=== PATIENT | female | born 1985 | race Caucasian/White ===

== ENCOUNTER 2016-09-29 16:21 | Emergency (ER) | payer MEDICAID ==
[2013-08-25 10:09] VITALS: BMI 27.8
[~2016-09-29 16:21] MED LIST: AMBIEN10 MG PO; DIABETA2.5 MG OR; MOTRIN600 MG PO; PERCOCET 5/3251 TA1 PO; PRENATAL COMPLE1 TAB PO
== END 2016-09-29 17:27 | disposition home or self-care (01) ==
LOC: D.ER 16:21
DX: S90.31XA Contusion of right foot, initial encounter (principal); W20.8XXA Other cause of strike by thrown, projected or falling object, initial encounter; Y93.89 Activity, other specified; Y92.019 Unspecified place in single-family (private) house as the place of occurrence of the external cause; B19.20 Unspecified viral hepatitis C without hepatic coma; F17.200 Nicotine dependence, unspecified, uncomplicated

== ENCOUNTER 2016-10-19 07:16 | Emergency (ER) | payer MEDICAID ==
[2013-08-25 10:09] VITALS: BMI 27.8
[2016-10-19 07:52] LABS: BASOPHILS 0.3 % (0.0-2.0); EOSINOPHILS 1.4 % (0-7); HEMATOCRIT 41.3 % (36.0-48.0); HEMOGLOBIN 14.3 g/dL (12-16); IMMATURE GRANULOCYTES 0.2 % (0-5); MCH 34.1 pg (26.0-34.0); MCHC 34.6 g/dL (31.0-37.0); MCV 98.6 fL (80.0-100.0); MEAN PLATELET VOLUME 10.8 fL (7.4-10.4); MONOCYTES 7.9 % (2-11); NEUTROPHILS 69.2 % (40-80); PLATELET COUNT 188 10x3/uL (130-400); RBC 4.19 10x6/uL (4.00-5.40); RDW 12.2 % (11.5-14.5); WBC 6.3 10x3/uL (4.8-10.8)
[2016-10-19 08:39] LABS: ALBUMIN 3.8 g/dL (3.4-5.0); ALKALINE PHOSPHATASE 59 U/L (46-116); ALT (SGPT) 55 U/L (10-68); AMYLASE - SERUM 40 U/L (25-115); BILIRUBIN - TOTAL 0.73 mg/dL (0.2-1.3); CALC OSMOLALITY 278 mosm/kg (275-300); CALCIUM 8.7 mg/dL (8.5-10.1); CARBON DIOXIDE 23.7 mmol/L (21.0-32.0); CHLORIDE - SERUM 107 mmol/L (98-107); CREATININE - SERUM 0.8 mg/dL (0.6-1.3); GLUCOSE 105 mg/dL (74-106); LIPASE 91 U/L (73-393); POTASSIUM - SERUM 3.6 mmol/L (3.5-5.1); PROTEIN - SERUM 7.2 g/dL (6.4-8.2); SODIUM 141 mmol/L (136-145); UREA NITROGEN 8 mg/dL (7-18); eGFR NON AFRICAN AMERICAN 89 mL/min (90-120)
[2016-10-19 08:42] LABS: HCG URINE NEGATIVE (NEGATIVE)
[2016-10-19 09:26] LABS: APPEARANCE SLT CLOUDY (CLEAR); COLOR YELLOW (YELLOW)
[2016-10-19 09:27] LABS: BACTERIA MODERATE /hpf (NONE SEEN); BILIRUBIN NEGATIVE (NEGATIVE); GLUCOSE NEGATIVE (NEGATIVE); KETONE NEGATIVE (NEGATIVE); LEUKOCYTE ESTERASE TRACE (NEGATIVE); MUCUS <1+ /lpf (NONE SEEN); NITRITE NEGATIVE (NEGATIVE); PROTEIN NEGATIVE (NEGATIVE); RED CELLS - URINE NONE SEEN /hpf (0-5); UROBILINOGEN NORMAL (NORMAL); WHITE CELLS - URINE RARE /hpf (0-5)
== END 2016-10-19 10:17 | disposition home or self-care (01) ==
LOC: D.ER 07:16
PROVIDERS: Emergency Medicine
DX: E86.0 Dehydration (principal); B34.9 Viral infection, unspecified; B19.20 Unspecified viral hepatitis C without hepatic coma; F17.200 Nicotine dependence, unspecified, uncomplicated

== ENCOUNTER 2017-08-26 16:10 | Emergency (ER) | payer MEDICAID ==
[2013-08-25 10:09] VITALS: BMI 27.8
== END 2017-08-26 18:00 | disposition left against medical advice (07) ==
LOC: D.ER 16:10
DX: E86.0 Dehydration (principal)

== ENCOUNTER 2018-03-10 07:35 | Emergency (ER) | payer MEDICAID ==
[~2018-03-10] VITALS: Ht 162.6 cm; Wt 72.1 kg
[2018-03-10 07:44] VITALS: Ht 162.6 cm; Wt 72.1 kg
[2018-03-10] MEDS ORDERED: CLONAZEPAM1 MG/TAB (07:46)
[2018-03-10] MEDS ORDERED: GEODON20 MG (07:46)
[2018-03-10] MEDS ORDERED: CATAPRES0.1 MG (07:46)
[2018-03-10] MEDS ORDERED: NORCO 7.5/325 T1 TA1 PO (08:43)
[2018-03-10 08:54] VITALS: BP 124/68
== END 2018-03-10 08:55 | disposition home or self-care (01) ==
LOC: D.ER 07:35
DX: S83.004A Unspecified dislocation of right patella, initial encounter (principal); X58.XXXA Exposure to other specified factors, initial encounter; Y93.89 Activity, other specified; Y92.019 Unspecified place in single-family (private) house as the place of occurrence of the external cause; F17.200 Nicotine dependence, unspecified, uncomplicated

== ENCOUNTER 2018-08-25 16:44 | Emergency (ER) | payer MEDICAID ==
[~2018-08-25] VITALS: Ht 162.6 cm; Wt 78.9 kg
[~2018-08-25 16:44] MED LIST changes: +CATAPRES0.1 MG; +CLONAZEPAM1 MG/TAB; +GEODON20 MG; +NORCO 7.5/325 T1 TA1 PO
[2018-08-25 16:53] VITALS: Ht 162.6 cm; Wt 78.9 kg
[2018-08-25 19:36] LABS: ALBUMIN 3.6 g/dL (3.4-5.0); ALKALINE PHOSPHATASE 54 U/L (46-116); ALT (SGPT) 40 U/L (10-68); BASOPHILS 0.5 % (0-2); BILIRUBIN - TOTAL 0.66 mg/dL (0.2-1.3); CALC OSMOLALITY 280 mosm/kg (275-300); CALCIUM 8.7 mg/dL (8.5-10.1); CARBON DIOXIDE 23.9 mmol/L (21.0-32.0); CHLORIDE - SERUM 106 mmol/L (98-107); CREATININE - SERUM 0.8 mg/dL (0.6-1.3); EOSINOPHILS 3.3 % (0-7); GLUCOSE 88 mg/dL (74-106); HEMATOCRIT 42.2 % (36.0-48.0); HEMOGLOBIN 14.5 g/dL (12-16); IMMATURE GRANULOCYTES 0.2 % (0-5); LYMPHOCYTES 38.9 % (15-50); MCH 34.6 pg (26.0-34.0); MCHC 34.4 g/dL (31.0-37.0); MCV 100.7 fL (80.0-100.0); MEAN PLATELET VOLUME 10.4 fL (7.4-10.4); MONOCYTES 8.6 % (2-11); NEUTROPHILS 48.5 % (40-80); PLATELET COUNT 184 10x3/uL (130-400); POTASSIUM - SERUM 3.7 mmol/L (3.5-5.1); PROTEIN - SERUM 7.1 g/dL (6.4-8.2); RBC 4.19 10x6/uL (4.00-5.40); RDW 12.3 % (11.5-14.5); SODIUM 142 mmol/L (136-145); UREA NITROGEN 9 mg/dL (7-18); WBC 6.4 10x3/uL (4.8-10.8); eGFR NON AFRICAN AMERICAN 87 mL/min (90-120)
[2018-08-25 21:05] LABS: APPEARANCE CLEAR (CLEAR); BILIRUBIN NEGATIVE (NEGATIVE); COLOR YELLOW (YELLOW); GLUCOSE NEGATIVE (NEGATIVE); KETONE NEGATIVE (NEGATIVE); NITRITE NEGATIVE (NEGATIVE); PROTEIN NEGATIVE (NEGATIVE); UROBILINOGEN NORMAL (NORMAL)
[2018-08-25 21:06] LABS: WHITE CELLS - URINE 0-5 /hpf (0-5)
[2018-08-25 21:08] LABS: BACTERIA FEW /hpf (NONE SEEN); EPITHELIAL CELLS 0-5 /hpf (0-5); RED CELLS - URINE OCC /hpf (0-5)
[2018-08-25 21:08] LABS: HCG URINE NEGATIVE (NEGATIVE)
[2018-08-25] MEDS ORDERED: CIPRO500 MG PO (22:37)
[2018-08-25] MEDS ORDERED: FLAGYL500 MG PO (22:37)
[2018-08-25 22:55] VITALS: BP 128/72
== END 2018-08-25 22:55 | disposition home or self-care (01) ==
LOC: D.ER 16:44
PROVIDERS: Emergency Medicine; Family Medicine
DX: K52.9 Noninfective gastroenteritis and colitis, unspecified (principal); N39.0 Urinary tract infection, site not specified; R11.2 Nausea with vomiting, unspecified

== ENCOUNTER 2018-09-21 14:25 | Emergency (ER) | payer MEDICAID ==
[~2018-09-21] VITALS: Ht 162.6 cm; Wt 85.0 kg
[~2018-09-21 14:25] MED LIST changes: +CIPRO500 MG PO; +FLAGYL500 MG PO
[2018-09-21 14:30] VITALS: Ht 162.6 cm; Wt 85.0 kg
[2018-09-21 15:37] LABS: BASOPHILS 0.1 % (0-2); EOSINOPHILS 0.2 % (0-7); HEMATOCRIT 45.4 % (36.0-48.0); HEMOGLOBIN 15.9 g/dL (12-16); IMMATURE GRANULOCYTES 0.4 % (0-5); LYMPHOCYTES 20.9 % (15-50); MCH 34.7 pg (26.0-34.0); MCV 99.1 fL (80.0-100.0); MEAN PLATELET VOLUME 10.1 fL (7.4-10.4); MONOCYTES 9.5 % (2-11); NEUTROPHILS 68.9 % (40-80); RBC 4.58 10x6/uL (4.00-5.40); RDW 12.4 % (11.5-14.5); WBC 8.1 10x3/uL (4.8-10.8)
[2018-09-21 15:38] LABS: PLATELET COUNT 229 10x3/uL (130-400)
[2018-09-21 15:53] LABS: ALBUMIN 3.8 g/dL (3.4-5.0); ALKALINE PHOSPHATASE 74 U/L (46-116); ALT (SGPT) 34 U/L (10-68); BILIRUBIN - TOTAL 2.31 mg/dL (0.2-1.3); CALC OSMOLALITY 285 mosm/kg (275-300); CALCIUM 9.1 mg/dL (8.5-10.1); CARBON DIOXIDE 23.5 mmol/L (21.0-32.0); CHLORIDE - SERUM 105 mmol/L (98-107); CREATININE - SERUM 1.1 mg/dL (0.6-1.3); GLUCOSE 94 mg/dL (74-106); POTASSIUM - SERUM 3.8 mmol/L (3.5-5.1); PROTEIN - SERUM 7.7 g/dL (6.4-8.2); SODIUM 142 mmol/L (136-145); UREA NITROGEN 20 mg/dL (7-18); eGFR NON AFRICAN AMERICAN 60 mL/min (90-120)
[2018-09-21 16:11] LABS: CKMB 1.7 U/L (0.0-3.6); CREATINE KINASE 178 UL (21-215)
[2018-09-21 16:12] LABS: TROPONIN-I < 0.017 ng/mL (0.000-0.060)
[2018-09-21 17:03] VITALS: BP 125/80
== END 2018-09-21 17:05 | disposition home or self-care (01) ==
LOC: D.ER 14:25
PROVIDERS: Family Medicine
DX: S09.90XA Unspecified injury of head, initial encounter (principal); Y04.2XXA Assault by strike against or bumped into by another person, initial encounter; Y93.89 Activity, other specified; Y92.89 Other specified places as the place of occurrence of the external cause

== ENCOUNTER 2020-01-11 18:06 | Emergency (ER) | payer MEDICAID ==
[~2020-01-11] VITALS: Ht 162.6 cm; Wt 81.8 kg
[2020-01-11 18:22] VITALS: BP 126/68; Ht 162.6 cm; Wt 81.8 kg
[2020-01-11 19:13] LABS: BASOPHILS 0.3 % (0-2); EOSINOPHILS 2.6 % (0-7); HEMATOCRIT 39.6 % (36.0-48.0); HEMOGLOBIN 13.9 g/dL (12-16); IMMATURE GRANULOCYTES 0.2 % (0-5); LYMPHOCYTES 36.6 % (15-50); MCH 35.4 pg (26.0-34.0); MCHC 35.1 g/dL (31.0-37.0); MCV 100.8 fL (80.0-100.0); MEAN PLATELET VOLUME 9.8 fL (7.4-10.4); MONOCYTES 10.2 % (2-11); NEUTROPHILS 50.1 % (40-80); PLATELET COUNT 233 10x3/uL (130-400); RBC 3.93 10x6/uL (4.00-5.40); RDW 12.1 % (11.5-14.5); WBC 6.6 10x3/uL (4.8-10.8)
[2020-01-11 19:24] LABS: CALC OSMOLALITY 281 mosm/kg (275-300); CALCIUM 8.7 mg/dL (8.5-10.1); CARBON DIOXIDE 20.8 mmol/L (21.0-32.0); CHLORIDE - SERUM 107 mmol/L (98-107); CREATININE - SERUM 0.9 mg/dL (0.6-1.3); GLUCOSE 120 mg/dL (74-106); POTASSIUM - SERUM 3.5 mmol/L (3.5-5.1); SODIUM 141 mmol/L (136-145); UREA NITROGEN 12 mg/dL (7-18); eGFR NON AFRICAN AMERICAN 76 mL/min (90-120)
[2020-01-11 19:30] LABS: ALBUMIN 3.5 g/dL (3.4-5.0); ALKALINE PHOSPHATASE 79 U/L (30-120); ALT (SGPT) 52 U/L (10-68); BILIRUBIN - TOTAL 1.15 mg/dL (0.2-1.3); PROTEIN - SERUM 6.4 g/dL (6.4-8.2)
[2020-01-11 20:12] LABS: CREATINE KINASE 265 UL (21-215); LIPASE 74 U/L (73-393); MAGNESIUM - SERUM 1.8 mg/dL (1.8-2.4)
[2020-01-11 20:16] LABS: CKMB 2.9 U/L (0.0-3.6)
== END 2020-01-11 21:30 | disposition left against medical advice (07) ==
LOC: D.ER 18:06
PROVIDERS: Family Medicine
DX: R33.9 Retention of urine, unspecified (principal); R25.2 Cramp and spasm; J45.909 Unspecified asthma, uncomplicated; Z72.0 Tobacco use

== ENCOUNTER 2020-03-26 07:37 | Emergency (ER) | payer MEDICAID ==
[~2020-03-26] VITALS: Ht 162.6 cm; Wt 84.1 kg
[2020-03-26 07:58] VITALS: BP 150/86; Ht 162.6 cm; Wt 84.1 kg
[2020-03-26] MEDS ORDERED: ACETAMINOPHEN500 M1 PO (08:24)
[2020-03-26] MEDS ORDERED: KEFLEX500 MG PO (08:24)
[2020-03-26] MEDS ORDERED: IBUPROFEN800 MG PO (08:24)
== END 2020-03-26 08:51 | disposition home or self-care (01) ==
LOC: D.ER 07:37
DX: K08.89 Other specified disorders of teeth and supporting structures (principal); G89.18 Other acute postprocedural pain; J45.909 Unspecified asthma, uncomplicated; Z72.0 Tobacco use

== ENCOUNTER 2020-05-02 19:14 | Emergency (ER) | payer MEDICAID ==
[~2020-05-02] VITALS: Ht 162.6 cm; Wt 77.3 kg
[~2020-05-02 19:14] MED LIST changes: +ACETAMINOPHEN500 M1 PO; +IBUPROFEN800 MG PO; +KEFLEX500 MG PO
[2020-05-02 19:22] VITALS: BP 118/69; Ht 162.6 cm; Wt 77.3 kg
== END 2020-05-02 20:52 | disposition left against medical advice (07) ==
LOC: D.ER 19:14
DX: M54.9 Dorsalgia, unspecified (principal)

== ENCOUNTER 2020-10-12 00:58 | Emergency (ER) | payer MEDICAID ==
[~2020-10-12] VITALS: Ht 162.6 cm; Wt 72.7 kg
[2020-10-12 01:06] VITALS: BP 141/88; Ht 162.6 cm; Wt 72.7 kg
[2020-10-12] MEDS ORDERED: ATARAX 25 MG TA25 MG PO (01:07)
[2020-10-12] MEDS ORDERED: ZOLOFT25 MG PO (01:07)
[2020-10-12 02:13] LABS: BASOPHILS 0.3 % (0-2); EOSINOPHILS 3.6 % (0-7); HEMATOCRIT 44.3 % (36.0-48.0); HEMOGLOBIN 15.3 g/dL (12-16); IMMATURE GRANULOCYTES 0.5 % (0-5); LYMPHOCYTE ABS# 2.29 10x3/uL (1.18-3.74); LYMPHOCYTES 37.4 % (15-50); MCH 34.7 pg (26.0-34.0); MCHC 34.5 g/dL (31.0-37.0); MCV 100.5 fL (80.0-100.0); MEAN PLATELET VOLUME 9.8 fL (7.4-10.4); MONOCYTES 9.2 % (2-11); RBC 4.41 10x6/uL (4.00-5.40); RDW 12.1 % (11.5-14.5); WBC 6.1 10x3/uL (4.8-10.8)
[2020-10-12 02:15] LABS: PLATELET COUNT 215 10x3/uL (130-400)
[2020-10-12 02:19] LABS: ANION GAP 10.6 mmol/L (8-16); CALCIUM 8.9 mg/dL (8.5-10.1); CARBON DIOXIDE 28.3 mmol/L (21.0-32.0); POTASSIUM - SERUM 3.9 mmol/L (3.5-5.1)
[2020-10-12 02:22] LABS: BILIRUBIN NEGATIVE (NEGATIVE); KETONE NEGATIVE (NEGATIVE); NITRITE NEGATIVE (NEGATIVE); UROBILINOGEN NORMAL mg/dL (< 2)
[2020-10-12 02:24] LABS: BACTERIA MODERATE HPF (NONE SEEN); SQUAMOUS EPITHELIAL 0-5 HPF (0-4); WHITE CELLS - URINE 0-5 HPF (0-4)
[2020-10-12 02:27] LABS: HCG SERUM NEGATIVE (NEGATIVE)
[2020-10-12 02:45] LABS: ALBUMIN 3.3 g/dL (3.4-5.0); BILIRUBIN - TOTAL 0.88 mg/dL (0.2-1.3); PROTEIN - SERUM 7.1 g/dL (6.4-8.2)
== END 2020-10-12 03:39 | disposition left against medical advice (07) ==
LOC: D.ER 00:58
PROVIDERS: Emergency Medicine
DX: N94.89 Other specified conditions associated with female genital organs and menstrual cycle (principal); Z53.29 Procedure and treatment not carried out because of patient's decision for other reasons